=== PATIENT | male | born 1975 | race Caucasian/White ===

== ENCOUNTER 2017-08-17 20:53 | Emergency (ER) | payer OTHER ==
[2017-08-17 21:00] VITALS: BP 122/69
[2017-08-17] MEDS ORDERED: Tetan/Diph/Pertus SYR(Tdap)* 0.5 ML SYR(BOOSTRIX) use SYR IM ONE (21:21)
--- NOTE | 2017-08-17 21:24 | UC ---
Laceration HPI - HPI Summary HPI Summary: 42 y/o male presents to the urgent care c/o cut to his RT lower arm with a piece of metal around 0500 this morning. Pt states last tetanus shot was 18 year ago. bleeding stopped with pressure. Pain is 4/10. Pt denies fever, sOB, numbness and tingling sensation over the Rt hand, chest pain, N/V/D. He was working all day and his friend advised him to come to the clinic to get a tetanus shot. - History Of Current Complaint Chief Complaint: UCUpperExtremity Stated Complaint: ARM INJURY Time Seen by Provider: 08/17/17 21:09 Hx Obtained From: Patient Laceration Location: Arm - RT lower arm superficial laceration Mechanism Of Injury: Sharp Trauma Onset/Duration: Sudden Onset, Lasting Hours - at 0500 AM Severity: Moderate Pain Intensity: 4 Pain Scale Used: 0-10 Numeric - Allergies/Home Medications Allergies/Adverse Reactions: Allergies Allergy/AdvReac Type Severity Reaction Status Date / Time No Known Allergies Allergy Verified 08/17/17 21:01 Home Medications: Home Medications traMADol TAB* [Ultram*] 50 mg PO Q6HR PRN 08/17/17 [History Confirmed 08/17/17] PMH/Surg Hx/FS Hx/Imm Hx Previously Healthy: Yes Cardiovascular History: Hypertension - diet control - Surgical History Surgical History: Yes Surgery Procedure, Year, and Place: DENTAL IMPLANT - Family History Known Family History: Positive: Hypertension - Social History Occupation: Employed Full-time Lives: With Family Alcohol Use: Rare Substance Use Type: None Smoking Status (MU): Never Smoked Tobacco - Immunization History Hx Tetanus, Diphtheria Vaccination: No - 18 years ago Review of Systems Constitutional: Negative Skin: Other - laceration on the RT lower arm Eyes: Negative ENT: Negative Respiratory: Negative Cardiovascular: Negative Gastrointestinal: Negative Genitourinary: Negative Motor: Negative Neurovascular: Negative Musculoskeletal: Negative Neurological: Negative Psychological: Negative Is Patient Immunocompromised?: No All Other Systems Reviewed And Are Negative: Yes Physical Exam Triage Information Reviewed: Yes Appearance: Well-Appearing, No Pain Distress, Well-Nourished Vital Signs: Initial Vital Signs Temp 97.4 F 08/17/17 20:57 Pulse 75 08/17/17 20:57 Resp 18 08/17/17 20:57 BP 122/69 08/17/17 20:57 Pulse Ox 100 08/17/17 20:57 Eyes: Positive: Conjunctiva Clear - PERRLA, EOMI, fundi grossly normal ENT: Positive: Normal ENT inspection, Hearing grossly normal, Pharynx normal, TMs normal - B/L externa ear clear Neck: Positive: Supple, Nontender, No Lymphadenopathy Respiratory: Positive: Chest non-tender, Lungs clear, Normal breath sounds, No respiratory distress Cardiovascular: Positive: RRR, No Murmur, Pulses Normal, Brisk Capillary Refill Abdomen Description: Positive: Nontender, No Organomegaly, Soft. Negative: CVA Tenderness (R), CVA Tenderness (L) Bowel Sounds: Positive: Present Musculoskeletal Exam: Normal Musculoskeletal: Positive: Strength Intact, ROM Intact, No Edema Neurological Exam: Normal Psychological Exam: Normal Skin: Positive: significant lesion(s) - Medial dorsal side of the RTlower forearm with a discrete laceration about 0.3cm in size, non bleeding, mild tender to palpation. RT #2 distal phalanx with a minimal puncture wound in the ventral side, mild sorrounding erythema, and tender to palpation. FROm of all phalanx and RT hand, capillary refill intact, pulses WNL, sensation WNL Laceration Course/Dx - Course/Dx Course Of Treatment: 42 y/o male presents to the urgent care c/o cut to his RT lower arm with a piece of metal around 0500 this morning. Pt states last tetanus shot was 18 year ago. bleeding stopped with pressure. Pain is 4/10. Pt denies fever, SOB, numbness and tingling sensation over the Rt hand, chest pain , N/V/D. He was working all day and his friend advised him to come to the clinic to get a tetanus shot. Hx obtained. Tdap ordered. Pt tolerated well IM inj given by nurse. Copious irrigation was done with saline by the nurse and the wound explored. There was no FB or deep structure injury noted. FROM of RT forearm. The length of the wound was about 0.3cm in size. Wound was covered bacitracin and sterile nonadherent dressing. Neurovascular intact and FROM. Pt Rx keflex PO for the puncture wound. First dose given at the clinic. Pt advised if redness develops with swelling in more than 48 hr of ABX treatment in his finger to return to the clinic for further treatment. Pt understood and agreed and left the clinic ambulating A&Ox3. - Differential Dx - Laceration/Wound Differental Diagnoses: Abrasion, Laceration, Puncture Wound, Tendon Laceration Provider Diagnoses: 1- Superficial laceration on RT lower arm. 2- puncture wound on RT #2 phalanx Discharge - Discharge Plan Condition: Stable Disposition: HOME Prescriptions: Bacitracin OINTMENT* 1 applic TOPICAL TID #1 tube Cephalexin CAP* [Keflex CAP*] 500 mg PO QID #27 cap Patient Education Materials: Laceration (ED), Wound Infection (ED) Referrals: Bryan Avendaño [facility] [Primary Care Provider] - 1 Week Additional Instructions: 1-Please take full course of antibiotic to avoid resistance. 2- Keep wound clean and dry and avoid excessive movement w/ your finger. 3-Take Ibuprofen or Tylenol PO q6-8hrs prn for pain or swelling. 4- If you develop fever or redness around finger or Rt arm despite the antibiotic please go to the ER immediately or return to the Urgent care.
[2017-08-17] MEDS ORDERED: Cephalexin CAP* 500 MG PO ONE (21:37)
== END 2017-08-17 21:49 | disposition home or self-care (01) ==
LOC: UCEAST 20:53
DX: S51.811A Laceration without foreign body of right forearm, initial encounter (principal); W45.8XXA Other foreign body or object entering through skin, initial encounter; Y92.9 Unspecified place or not applicable; S61.234A Puncture wound without foreign body of right ring finger without damage to nail, initial encounter
CPT/HCPCS: 90715; 99212; A9270-GY; G0463